=== PATIENT | male | born 1975 | race Caucasian/White ===

== ENCOUNTER 2018-09-04 19:51 | Emergency (ER) | payer OTHER ==
[~2018-09-04] VITALS: Ht 193 cm; Wt 158.8 kg
[~2018-09-04 19:51] MED LIST: ACETAMINOPHEN-1 EAC1 PO; WELCHOL3.75 GM; ZOFRAN4 MG PO
[2018-09-04 20:23] LABS: ABSOLUTE BASOPHILS 0.1 thou/uL (0.0-0.2); ABSOLUTE EOSINOPHILS 0.1 thou/uL (0.0-0.7); ABSOLUTE MONOCYTES 0.6 thou/uL (0.0-1.2); ABSOLUTE NEUTROPHILS 4.2 thou/uL (1.6-8.1); EOSINOPHILS 1.2 %; HEMATOCRIT 46.7 % (42.0-52.0); HEMOGLOBIN 16.6 gm/dL (14.0-18.0); LYMPHOCYTES 29.3 %; MCHC 35.6 g/dL (28.0-37.0); MCV 89.8 fL (80.0-100.0); MONOCYTES 8.1 %; MPV 8.8 fl. (7.2-11.1); NUCLEATED RBCS 0 /100WBC; PLATELET COUNT* 200 thou/uL (150-400); POLYS 60.4 %; RBC 5.21 mil/uL (4.50-6.00); RDW-CV 13.8 % (10.5-14.5); WBC 6.9 thou/uL (4.0-11.0)
[2018-09-04] MEDS ORDERED: METFORMIN HCL500 MG PO (20:35)
[2018-09-04 20:38] LABS: URINE BILIRUBIN NEGATIVE (Negative); URINE BLOOD NEGATIVE (Negative); URINE CLARITY CLEAR; URINE COLOR YELLOW; URINE GLUCOSE-RANDOM 3+ (Negative); URINE KETONES TRACE (Negative); URINE LEUKOCYTES-REFLEX NEGATIVE (Negative); URINE NITRITE-REFLEX NEGATIVE (Negative); URINE PROTEIN NEGATIVE (Negative); URINE SPECIFIC GRAVITY 1.025 (1.005-1.030); URINE UROBILINOGEN 0.2 E.U./dl (0.2-1.0)
[2018-09-04 20:39] LABS: CALCIUM 9.6 mg/dL (8.5-10.1); POTASSIUM 4.1 mmol/L (3.5-5.1)
[2018-09-04 20:44] LABS: ALBUMIN 4.1 g/dL (3.4-5.0); TOTAL BILIRUBIN 1.5 mg/dL (<0.1-1.0); TOTAL PROTEIN 7.6 g/dL (6.4-8.2)
[2018-09-04 21:10] VITALS: BP 165/92
== END 2018-09-04 21:10 | disposition home or self-care (01) ==
LOC: M.ERS 19:51
PROVIDERS: Physician Assistant
DX: R73.9 Hyperglycemia, unspecified (principal)

== ENCOUNTER 2018-10-03 17:39 | Emergency (ER) | payer OTHER ==
[~2018-10-03] VITALS: Ht 193 cm; Wt 154.2 kg
[~2018-10-03 17:39] MED LIST changes: +METFORMIN HCL500 MG PO
[2018-10-03] MEDS ORDERED: IBUPROFEN 800800 M1 PO (17:52)
[2018-10-03] MEDS ORDERED: NORVASC5 MG PO (18:00)
[2018-10-03 18:10] VITALS: BP 152/93
== END 2018-10-03 18:11 | disposition home or self-care (01) ==
LOC: M.ERS 17:39
DX: S01.01XA Laceration without foreign body of scalp, initial encounter (principal); X58.XXXA Exposure to other specified factors, initial encounter; Y93.89 Activity, other specified; Y92.89 Other specified places as the place of occurrence of the external cause; Y99.8 Other external cause status

== ENCOUNTER 2019-05-08 07:30 | Emergency (ER) | payer OTHER ==
[~2019-05-08] VITALS: Ht 193 cm; Wt 142.9 kg
[~2019-05-08 07:30] MED LIST changes: +IBUPROFEN 800800 M1 PO; +NORVASC5 MG PO
[2019-05-08 08:12] LABS: ABSOLUTE LYMPHOCYTES 0.6 thou/uL (0.8-5.3); ABSOLUTE MONOCYTES 0.6 thou/uL (0.0-1.2); ABSOLUTE NEUTROPHILS 6.3 thou/uL (1.6-8.1); BASOPHILS 0.3 %; HEMATOCRIT 47.6 % (42.0-52.0); HEMOGLOBIN 16.7 gm/dL (14.0-18.0); LYMPHOCYTES 8.1 %; MCH 32.2 pg (26.0-34.0); MCV 92.1 fL (80.0-100.0); MONOCYTES 7.5 %; NUCLEATED RBCS 0 /100WBC; PLATELET COUNT* 202 thou/uL (150-400); POLYS 84.1 %; RBC 5.18 mil/uL (4.50-6.00); RDW-CV 13.9 % (10.5-14.5); WBC 7.5 thou/uL (4.0-11.0)
[2019-05-08 08:32] LABS: ANION GAP 14 mmol/L (7-16); BUN 20 mg/dL (7-18); CALCIUM 9.3 mg/dL (8.5-10.1); CHLORIDE 102 mmol/L (98-107); CO2 21 mmol/L (21-32); CREATININE 1.2 mg/dL (0.6-1.3); GLUCOSE 142 mg/dL (70-99); SODIUM 137 mmol/L (136-145)
[2019-05-08 08:48] LABS: ALBUMIN 4.4 g/dL (3.4-5.0); ALKALINE PHOSPHATASE 74 U/L (46-116); LIPASE 84 U/L (73-393); SGOT 31 U/L (15-37); SGPT 52 U/L (30-65); TOTAL BILIRUBIN 2.8 mg/dL (<0.1-1.0); TOTAL PROTEIN 7.6 g/dL (6.4-8.2); TROPONIN-I LEVEL <0.06 ng/mL (<0.06)
[2019-05-08 08:53] LABS: URINE BLOOD NEGATIVE (Negative); URINE CLARITY CLEAR; URINE COLOR YELLOW; URINE GLUCOSE-RANDOM TRACE (Negative); URINE KETONES TRACE (Negative); URINE LEUKOCYTES-REFLEX NEGATIVE (Negative); URINE PROTEIN 2+ (Negative); URINE SPECIFIC GRAVITY >= 1.030 (1.005-1.030)
[2019-05-08 08:54] LABS: ICTOTEST (BILI CONFIRMATORY) Positive (Negative); URINE BILIRUBIN 2+ (Negative); URINE NITRITE-REFLEX POSITIVE (Negative)
[2019-05-08 09:07] LABS: BACTERIA-REFLEX >30 Many /HPF (None Seen); CASTS None Seen /LPF (None Seen); CRYSTALS None Seen /LPF (None Seen); MUCUS 4-6 Moderate strn/LPF (None Seen); SQUAMOUS 0-3 Few /LPF (0-3); URINE RBC 3-10 Few /HPF (0-2); URINE WBC-REFLEX 6-15 Few /HPF (0-5)
[2019-05-08] MEDS ORDERED: CIPROFLOXACIN500 M1 PO (09:42)
[2019-05-08] MEDS ORDERED: ZOFRAN ODT4 MG SUBLING (09:42)
[2019-05-08 10:04] VITALS: BP 125/77
--- NOTE | 2019-05-10 07:32 | EKG ---
[place] [address] ELECTROCARDIOGRAM REPORT Name: SUNILANN Room: [facility]#: [id number] Admission: 05/08/19 Attend Phys: Discharge: 05/08/19 Date of : 79 Report #: [id number] THIS REPORT FOR: //name// [facility] ED Test Date: 2019-05-08 Test Time: 07:54:30 Pat Name: ANN BARBER Department: Room: Gender: M Box Toe Buffer: DANIELLE : 1975 Requested By: Leo Gomes Order Number: [id number] MD: Vernon Albert Measurements Intervals [place] Rate: 88 P: 58 PA: 189 QRS: 12 QRSD: 103 T: 63 QT: 338 QTc: 409 Interpretive Statements Sinus rhythm ST elev, probable normal early repol pattern No previous ECG available for comparison Electronically Signed On 05-10-2019 7:32:14 CDT by Vernon Albert [email or web address] <ELECTRONICALLY SIGNED> By: Vernon Albert MD, [facility] 05/10/19 [id number] Vernon Albert MD, FACC /EPI
== END 2019-05-08 10:05 | disposition home or self-care (01) ==
LOC: M.ERS 07:30
PROVIDERS: Family Medicine
DX: N39.0 Urinary tract infection, site not specified (principal); R11.2 Nausea with vomiting, unspecified; R19.7 Diarrhea, unspecified; Z98.84 Bariatric surgery status; Z90.49 Acquired absence of other specified parts of digestive tract; Z98.890 Other specified postprocedural states